=== PATIENT | male | born 1940 | race Caucasian/White ===

== ENCOUNTER → 2019-02-06 | Outpatient (CLI) | payer MEDICARE, OTHER ==
--- NOTE | 2019-02-06 15:51 | US ---
EXAM DESCRIPTION: Venous,Lower Extremity RT (accession [id number]), Venous,Lower Extremity LT (accession [id number]): Ultrasound. CLINICAL HISTORY: Localized edema LEFT COMPARISON: None Available. TECHNIQUE: Two -dimensional and doppler sonographic evaluation of the deep venous system of the bilateral lower extremities. FINDINGS: Doppler evaluation shows normal color flow and normal phasicity and augmentation of the bilateral common femoral veins, deep femoral veins, femoral veins, popliteal veins, greater saphenous vein junction with the common femoral vein, and peroneal veins, Also posterior tibial veins. These veins showed normal occlusion with transducer pressure. Two-dimensional survey showed no echogenic clot within these veins. IMPRESSION: Duplex ultrasound evaluation of the bilateral lower extremity deep venous systems showing no evidence of thrombosis. Electronically signed by: Mat Tuttle MD 02/06/2019 3:49 PM CDT
--- NOTE | 2019-02-06 15:51 | US ---
EXAM DESCRIPTION: Venous,Lower Extremity RT (accession [id number]), Venous,Lower Extremity LT (accession [id number]): Ultrasound. CLINICAL HISTORY: Localized edema LEFT COMPARISON: None Available. TECHNIQUE: Two -dimensional and doppler sonographic evaluation of the deep venous system of the bilateral lower extremities. FINDINGS: Doppler evaluation shows normal color flow and normal phasicity and augmentation of the bilateral common femoral veins, deep femoral veins, femoral veins, popliteal veins, greater saphenous vein junction with the common femoral vein, and peroneal veins, Also posterior tibial veins. These veins showed normal occlusion with transducer pressure. Two-dimensional survey showed no echogenic clot within these veins. IMPRESSION: Duplex ultrasound evaluation of the bilateral lower extremity deep venous systems showing no evidence of thrombosis. Electronically signed by: Mat Tuttle MD 02/06/2019 3:49 PM CDT
== END ==
LOC: NC 08:45
PROVIDERS: ATTEND Emergency Medicine
DX: R60.0 Localized edema (principal); E11.51 Type 2 diabetes mellitus with diabetic peripheral angiopathy without gangrene; I89.0 Lymphedema, not elsewhere classified; M10.032 Idiopathic gout, left wrist; I12.9 Hypertensive chronic kidney disease with stage 1 through stage 4 chronic kidney disease, or unspecified chronic kidney disease; D50.8 Other iron deficiency anemias; J44.9 Chronic obstructive pulmonary disease, unspecified; N40.0 Benign prostatic hyperplasia without lower urinary tract symptoms; N18.3 Chronic kidney disease, stage 3 (moderate); I50.9 Heart failure, unspecified

== ENCOUNTER 2019-03-25 11:43 | Observation (INO) | payer MEDICARE, OTHER ==
--- NOTE | 2019-03-25 12:39 | ED.PDOC ---
History of Present Illness - General Chief Complaint: Cardiovascular Problem Stated Complaint: swelling in legs Time Seen by Provider: 03/25/19 12:23 Source: patient, RN notes reviewed, Vital Signs reviewed, family Exam Limitations: no limitations - History of Present Illness Initial Comments: presents with family for 6 week h/o edema in bilateral legs. Family states he has a history of this. He is supposed to take Lasix, but he is noncompliant and has not taken it in many weeks. He is supposed to wear compression hose, but again is noncompliant with this as well. Pt denies CP, SOB or any recent injury. Also reports edema to left hand for the past month, he has seen pcp for this and diagnosed with gout. Daughter states he had bilateral lower extremity US done 3 weeks ago here for DVT and were negative. Allergies/Adverse Reactions: Allergies NO KNOWN ALLERGY Allergy (Verified 03/25/19 12:19) Review of Systems - Review of Systems Constitutional: Denies: chills, fever, weakness EENTM: Denies: blurred vision, ear pain, nose congestion, throat pain Respiratory: Denies: cough, orthopnea, short of breath, stridor Cardiology: States: edema. Denies: chest pain, palpitations, syncope Gastrointestinal/Abdominal: Denies: abdominal pain, constipation, diarrhea, nausea Genitourinary: Denies: dysuria, frequency, hematuria Musculoskeletal: Denies: back pain, muscle pain Neurological: Denies: headache, weakness Hematologic/Lymphatic: Denies: easy bleeding, easy bruising All other Systems: Reviewed and Negative Past Medical History (General) - Patient Medical History Hx Stroke: No Hx Asthma: No Hx Cardiac Disorders: No Hx Congestive Heart Failure: No Hx Thyroid Disease: No Hx Diabetes: Yes Hx Gastroesophageal Reflux: No Surgical History: other Family Medical History - Family History Mother Family History: Unknown Physical Exam - Physical Exam General Appearance: Alert, Comfortable, No apparent distress Ears, Nose, Throat: normal pharynx Neck: non-tender, full range of motion, supple Respiratory: chest non-tender, lungs clear, normal breath sounds, no respiratory distress Cardiovascular/Chest: normal peripheral pulses, regular rate, rhythm, no murmur, other - 2+ pitting edema to mid thigh bilaterally. Dorsum of left hand has pitting edema with no erythema or tenderness. 2+ radial pulses Gastrointestinal/Abdominal: non tender, soft, other - nondistended Back Exam: normal inspection, no CVA tenderness, no vertebral tenderness Extremity: normal range of motion, pedal edema, swelling Neurologic: no motor/sensory deficits, alert, normal mood/affect, oriented x 3 Skin Exam: normal color, warm/dry Progress - Progress Progress: 03/25/19 14:25 D/W Asa May, hospitalist. Will admit. Pt has h/o HTN, CHF. Presents with worsening BLE edema for 2 months and noncompliant with diuretic. Now having SOB with lying flat. No sign of cellulitis. Had BLE US last month that were negative. CXR shows fluid overload. Troponin and creatinine normal. Will admit for further treatment. - Results/Orders Results/Orders: 03/25/19 12:34 Venous,Upper Extremity LT [US] Stat Laboratory Results - last 24 hr 03/25/19 03/25/19 03/25/19 12:47 12:47 12:47 WBC 6.3 RBC 4.48 L Hgb 13.3 L Hct 39.5 L MCV 88.0 MCH 29.6 MCHC 33.6 RDW 14.2 Plt Count 270 MPV 8.2 Absolute Neuts (auto) 4.50 Absolute Lymphs (auto) 0.80 L Absolute Monos (auto) 0.90 H Absolute Eos (auto) 0.10 Absolute Basos (auto) 0.10 Neutrophils % 70.3 Lymphocytes % 12.8 L Monocytes % 13.9 H Eosinophils % 2.2 Basophils % 0.8 Sodium 140 Potassium 3.9 Chloride 106 Carbon Dioxide 24 Anion Gap 13.9 BUN 29 H Creatinine 1.22 BUN/Creatinine Ratio 23.8 H Random Glucose 114 H Serum Osmolality 286.1 Calcium 9.2 Total Bilirubin 1.1 H AST 17 ALT 11 Alkaline Phosphatase 57 Troponin I < 0.02 B-Natriuretic Peptide 14.8 Serum Total Protein 6.9 Albumin 3.8 Globulin 3.1 Albumin/Globulin Ratio 1.2 Urine Color Urine Appearance Urine pH Ur Specific Garrison Urine Protein Urine Glucose (UA) Urine Ketones Urine Blood Urine Nitrite Urine Bilirubin Urine Urobilinogen Ur Leukocyte Esterase Urine RBC Urine WBC Ur Epithelial Cells Urine Bacteria 03/25/19 13:00 WBC RBC Hgb Hct MCV MCH MCHC RDW Plt Count MPV Absolute Neuts (auto) Absolute Lymphs (auto) Absolute Monos (auto) Absolute Eos (auto) Absolute Basos (auto) Neutrophils % Lymphocytes % Monocytes % Eosinophils % Basophils % Sodium Potassium Chloride Carbon Dioxide Anion Gap BUN Creatinine BUN/Creatinine Ratio Random Glucose Serum Osmolality Calcium Total Bilirubin AST ALT Alkaline Phosphatase Troponin I B-Natriuretic Peptide Serum Total Protein Albumin Globulin Albumin/Globulin Ratio Urine Color Yellow Urine Appearance Clear Urine pH 5.5 Ur Specific Garrison 1.025 Urine Protein Negative Urine Glucose (UA) Negative Urine Ketones Negative Urine Blood Negative Urine Nitrite Negative Urine Bilirubin Negative Urine Urobilinogen 0.2 Ur Leukocyte Esterase Negative Urine RBC 0 Urine WBC 0 Ur Epithelial Cells 0 Urine Bacteria 0 PROVIDED CLINICAL HISTORY/REASON FOR EXAM: edema Comparison: Most recent prior available Findings: Number of images: 1 Location: Frontal Chest Cardiomegaly. Pulmonary vascular congestion. Trace bilateral pleural effusions. Increased bilateral interstitial and airspace opacities. No pneumothorax. No acute osseous abnormality. Soft tissues are unremarkable. No focal consolidation. IMPRESSION: CHF/Volume overload with trace bilateral pleural effusions. Departure - Departure Clinical Impression: Volume overload, Peripheral edema Pulmonary edema Qualifiers: Chronicity: acute Qualified Code(s): J81.0 - Acute pulmonary edema Time of Disposition: 14:29 Disposition: Admit Patient Condition: Fair Departure Forms: ED Discharge - Pt. Copy, Patient Portal Self Enrollment Instructions: DI for Chest Pain Decision To Admit - Decistion To Admit Decision to Admit Reason: Admit from ER Decision to Admit Date: 03/25/19 Decision to Admit Time: 14:28
--- NOTE | 2019-03-25 12:50 | RAD ---
PROVIDED CLINICAL HISTORY/REASON FOR EXAM: edema Comparison: Most recent prior available Findings: Number of images: 1 Location: Frontal Chest Cardiomegaly. Pulmonary vascular congestion. Trace bilateral pleural effusions. Increased bilateral interstitial and airspace opacities. No pneumothorax. No acute osseous abnormality. Soft tissues are unremarkable. No focal consolidation. IMPRESSION: CHF/Volume overload with trace bilateral pleural effusions. Electronically signed by: Sloan Quintanilla MD 03/25/2019 12:48 PM CDT
[2019-03-25] MEDS ORDERED: FUROSEMIDE INJ 40 MG/4 ML VIAL IV ONE (13:01)
--- NOTE | 2019-03-25 15:45 | HP ---
SUPERVISING PHYSICIAN: Tone Banks M.D. CHIEF COMPLAINT: Bilateral lower extremity edema. HISTORY OF PRESENT ILLNESS: Mr. Castro is a 79 year male patient that presented to the [facility] at the request of his family members due to some increasing lower extremity edema over the last several weeks. He sees Dr. Ty Sarabia and has been worked up in the last 3 weeks for possible DVT with ultrasound which was reported negative. He denied any shortness of breath or chest pains but does have a significant amount of edema bilaterally. He is normally on Lasix and Coreg but is not compliant with his medications. He is also supposed to be wearing support hose which he does not do on a regular basis. He denies being diabetic but is a very poor historian. In the [facility] today, his lab work showed he had normal electrolytes with a creatinine of 1.22, glucose 114. Bilirubin was slightly elevated at 1.1. All over liver functions were within normal limits as well as troponin at less than 0.02. BNP was normal at 14. CBC showed normal white count at 6,300 with hemoglobin 13.3, hematocrit 39.5, platelet count 270,000. Differential showed to be without a left shift. Vital signs showed to be normotensive and afebrile. On exam, he does show a significant amount of bilateral lower extremity edema to the pretibial area just below the knee to the entire foot with redness and some serous drainage. No obvious consolidations. He continues denying any chest pain or any other significant symptoms. He does report that he has not been taking his medications as directed. The patient is now going to be admitted to the Medical/Surgical floor for further evaluation and treatment of bilateral lower extremity cellulitis, DVT studies to rule out a lower extremity DVT as well as early concerns for possible congestive heart failure exacerbation, but the patient has no history reportedly of CHF. His chest x-ray, although it was a single view chest, did show CHF/volume overload with trace of bilateral pleural effusions. Echocardiogram was done in the [facility] that was pending at time of admission. The patient is now going to be admitted for bilateral lower extremity edema and treatment of underlying cellulitis with concerns for possible complications from CHF versus just poor medical compliance with treatment regimen. PAST MEDICAL HISTORY: 1. Hypertension. 2. Gout. PAST SURGICAL HISTORY: 1. Bilateral foot surgery for reportedly having diabetic ulcers. HOME MEDICATIONS: 1. Coreg 6.25 mg b.i.d. 2. Flomax 0.4 mg daily. 3. Lasix 40 mg daily. ALLERGIES: NO KNOWN DRUG ALLERGIES. FAMILY HISTORY: Noncontributory. SOCIAL HISTORY: The patient lives in [place] with his . He was a previous tobacco smoker but quit in 1995. He is retired from the [employer]. REVIEW OF SYSTEMS: CONSTITUTIONAL: Negative for any fevers, chills or weakness. HEENT: Negative for sore throats, earaches, nasal congestion, vision changes, headaches. RESPIRATORY: Negative for cough, orthopnea, shortness of breath, stridor. CARDIOVASCULAR: Positive for lower extremity edema, but negative for chest pain, palpitations or syncopal episodes. GASTROINTESTINAL: Negative for nausea, vomiting, diarrhea, constipation or abdominal pain. GENITOURINARY: Negative for dysuria, hematuria, polyuria. MUSCULOSKELETAL: Negative for back pain, muscle pain. NEUROLOGIC: Negative for headaches, vision changes, syncopal episodes, ataxia, seizures, paresthesias. HEMATOLOGIC: Negative for easy bleeding, bruising or transfusion reactions. INTEGUMENTARY: As noted in history of present illness, erythema, swelling of the lower extremities bilaterally with leaking of fluid. PHYSICAL EXAMINATION: VITAL SIGNS: He is afebrile with temperature 98, pulse 86, blood pressure 172/76, respirations 18, satting 98% on room air. GENERAL: The patient is morbidly obese, unkempt with a body odor. He appears to be comfortable in no acute distress. HEENT: Tympanic membranes are clear bilaterally. Oropharynx is pink and moist without any lesions. There is noted what looks to be either a skin cancer versus melanoma to the bridge of the nose which he has refused to have examined and treated for in the past. CHEST: Lung sounds are clear to auscultation, just diminished towards the bases. No obvious rhonchi, wheezing or rales is noted. CARDIOVASCULAR: Regular rate and rhythm without appreciable murmurs, gallops, or rubs. ABDOMEN: Distended but obese, soft, non-tender. Positive bowel sounds. BACK: Without any vertebral or CVA tenderness. EXTREMITIES: Noted 3+ bilateral lower extremity edema with evidence of chronic stasis ulcers to both lower extremities. No obvious areas of consolidation or wounds. His edema does extend just below the knee but does have a trace of edema to the upper. Pulses were weak but palpable bilaterally. NEUROLOGIC: He was alert and oriented times three. Facial features were symmetrical. Extraocular movements are intact. were within normal limits. There is no notable nystagmus. SKIN: Warm, pink and dry except for the noted lesion on the bridge of the nose. LABORATORY: White count showing to be normal at 6,300, hemoglobin 13.3, hematocrit 39.5, platelet count 270,000. Differential shows to be without a left shift. Chemistries show normal electrolytes with BUN 29, creatinine 1.22, glucose 114. Bilirubin 1.1. The rest of AST, ALT and alkaline phosphatase were within normal limits. BNP was 14, troponin less than 0.02. Urinalysis showed to be within normal limits. MICROBIOLOGY: No microbiology specimens were submitted prior to administration of antibiotics. RADIOLOGY: He had a chest x-ray and per radiology interpretation did show congestive heart failure volume overload with trace bilateral pleural effusions. ASSESSMENT: 1. Bilateral lower extremity edema, uncertain etiology, but showing to have a significant amount of cellulitis bilaterally. 2. Questionable congestive heart failure. Echocardiogram pending but the patient having a normal BNP on admission. 3. Chronic lower extremity edema with stasis ulcers contributing to #1 requiring initiation of parenteral antibiotics. 4. Poor medical compliance. PLAN: Mr. Castro is going to be admitted for initiation of antibiotic therapy for bilateral lower extremity edema and cellulitis. I will give him a dose of vancomycin 750 mg tonight. Will follow it up with vancomycin per Pharmacy protocol in the morning. I have also ordered ultrasound of the lower extremities as it has been 3 weeks since he had his last studies. He is on Lovenox until that point. I have also ordered a TSH and hemoglobin A1c as there is very little known about his past medical history. I have given him some Nystatin for the yeast infection to the panniculus. Will repeat labs in the morning. Until we can transition to outpatient management will continue antibiotic therapy with Rocephin and vancomycin. Until then will continue to monitor and treat as needed. #[id number] [facility]
--- NOTE | 2019-03-25 16:15 | US ---
EXAM DESCRIPTION: Venous,Upper Extremity LT: ULTRASOUND. CLINICAL HISTORY: r/o DVT COMPARISON: None Available. TECHNIQUE: Two -dimensional and doppler sonographic evaluation of the deep venous system of the left upper extremity. FINDINGS: Doppler evaluation shows normal color flow and normal phasicity and augmentation of the left subclavian, jugular, axillary, basilic, brachial, radial vein and ulnar vein. Left cephalic vein was not visualized. The left upper extremity deep veins showed normal occlusion with transducer pressure. Two-dimensional survey showed no echogenic thrombus within these veins. IMPRESSION: Duplex ultrasound evaluation of the left upper extremity deep venous system showing no thrombosis . Electronically signed by: Mat Tuttle MD 03/25/2019 4:14 PM CDT
[2019-03-25] MEDS ORDERED: ACETAMINOPHEN 325 MG TAB PO PRN (17:20)
[2019-03-25] MEDS ORDERED: SODIUM CHLORIDE 0.9% (FLUSH) 10 ML SYG IV PRN (17:20)
[2019-03-25] MEDS ORDERED: MAGNESIUM HYDROXIDE 30 ML UD PO PRN (17:20)
[2019-03-25] MEDS ORDERED: NITROGLYCERIN 0.4 MG 25 EA TAB SL PRN (17:20)
[2019-03-25] MEDS ORDERED: ONDANSETRON INJ 4 MG/2 ML VIAL IV PRN (17:20)
[2019-03-25] MEDS ORDERED: IV SET AND CAP CHANGE INJ INJ SCH (17:30)
[2019-03-25] MEDS ORDERED: VANCOMYCIN HCL INJ 1,750 MG in SODIUM CHLORIDE 0.9% 500ML 500 ML IVPB ONE (17:47)
[2019-03-25] MEDS ORDERED: SODIUM CHLORIDE 0.9% 250ML 250 ML ONE (17:52)
[2019-03-25] MEDS ORDERED: FLUCONAZOLE 150 MG TAB PO ONE (17:53)
[2019-03-25] MEDS ORDERED: VANCOMYCIN HCL INJ 1,000 MG VIAL IVPB ONE ×2 (17:53→18:09)
[2019-03-25] MEDS ORDERED: SODIUM CHLORIDE 0.9% 500ML 500 ML ONE (18:09)
[2019-03-25] MEDS: NITROGLYCERIN 0.4 MG/HR PATCH TOP SCH (18:12)
[2019-03-25] MEDS ORDERED: CARVEDILOL 3.125 MG TAB ONE (19:20)
[2019-03-25] MEDS ORDERED: SODIUM CHL 0.9% 50ML MIN-BAG+ 50 ML IVPB ONE (19:20)
[2019-03-25] MEDS ORDERED: cefTRIAXone SODIUM 1 GM VIAL ONE (19:21)
[2019-03-25] MEDS: ENOXAPARIN SODIUM 40 MG/0.4 ML SYG SUBCU SCH (20:17)
[2019-03-25] MEDS: NYSTATIN POWDER 15GM BTTL TOP SCH (20:17)
[2019-03-25] MEDS: cefTRIAXone SODIUM 1 GM in SODIUM CHL 0.9% 50ML MIN-BAG+ 50 ML IVPB SCH (20:53)
[2019-03-25] MEDS ORDERED: NON-FORMULARY MEDICATION 1 EA MIS (Carvedilol [Coreg] 6.25 MG) PO SCH (21:00)
[2019-03-26] MEDS ORDERED: VANCOMYCIN PER PHARMACY IVPB SCH (08:00)
[2019-03-26] MEDS: BIFIDOBACTERIUM INFANTIS 4 MG CAP PO SCH (10:20)
[2019-03-26] MEDS: CARVEDILOL 3.125 MG TAB PO SCH ×2 (10:20→20:34)
[2019-03-26] MEDS: NITROGLYCERIN 0.4 MG/HR PATCH TOP SCH (10:21)
[2019-03-26] MEDS: LISINOPRIL 10 MG TAB PO SCH (10:21)
[2019-03-26] MEDS: TAMSULOSIN 0.4 MG CAP PO SCH (10:21)
[2019-03-26] MEDS: FUROSEMIDE INJ 40 MG/4 ML VIAL IV SCH ×2 (10:21→19:25)
[2019-03-26] MEDS: ASPIRIN (CHEWABLE) 81 MG TAB PO SCH (10:21)
[2019-03-26] MEDS: NYSTATIN POWDER 15GM BTTL TOP SCH ×4 (10:26→20:34)
--- NOTE | 2019-03-26 10:51 | US ---
EXAM DESCRIPTION: Venous,Lower Extremity LT (accession [id number]), Venous,Lower Extremity RT (accession [id number]): Ultrasound. CLINICAL HISTORY: Bilateral LE edema cellulitis COMPARISON: None Available. TECHNIQUE: Two -dimensional and doppler sonographic evaluation of the deep venous system of the bilateral lower extremities. FINDINGS: Doppler evaluation shows normal color flow and normal phasicity and augmentation of the bilateral common femoral veins, junctions with the bilateral proximal saphenous veins, femoral veins, popliteal veins, peroneal and posterior tibial veins. These veins showed normal occlusion with transducer pressure. Two-dimensional survey showed no echogenic clot within these veins. Bilateral edema in the subcutaneous tissues which could represent cellulitis. No fluid collection. IMPRESSION: Duplex ultrasound evaluation of the bilateral lower extremity deep venous systems showing no evidence of thrombosis. Bilateral edema/cellulitis . No fluid collection. Electronically signed by: Mat Tuttle MD 03/26/2019 10:50 AM CDT
--- NOTE | 2019-03-26 10:51 | US ---
EXAM DESCRIPTION: Venous,Lower Extremity LT (accession [id number]), Venous,Lower Extremity RT (accession [id number]): Ultrasound. CLINICAL HISTORY: Bilateral LE edema cellulitis COMPARISON: None Available. TECHNIQUE: Two -dimensional and doppler sonographic evaluation of the deep venous system of the bilateral lower extremities. FINDINGS: Doppler evaluation shows normal color flow and normal phasicity and augmentation of the bilateral common femoral veins, junctions with the bilateral proximal saphenous veins, femoral veins, popliteal veins, peroneal and posterior tibial veins. These veins showed normal occlusion with transducer pressure. Two-dimensional survey showed no echogenic clot within these veins. Bilateral edema in the subcutaneous tissues which could represent cellulitis. No fluid collection. IMPRESSION: Duplex ultrasound evaluation of the bilateral lower extremity deep venous systems showing no evidence of thrombosis. Bilateral edema/cellulitis . No fluid collection. Electronically signed by: Mat Tuttle MD 03/26/2019 10:50 AM CDT
--- NOTE | 2019-03-26 11:46 | PN ---
SUPERVISING PHYSICIAN: Shari Banks MD DATE: 03/26/19 SUBJECTIVE: The patient states his legs are not quite as tight feeling. He is not having any shortness of breath. He has had no chest pains, no further complaints. OBJECTIVE: VITAL SIGNS: Temperature 98.2. Pulse 92. Blood pressure 142/56. Respirations 20. Oxygen saturation 95% on room air. I&Os show positive balance of 100 with weight 121.6 kg. This is down from 124.5 kg on admission. GENERAL: The patient is resting comfortably, in no acute distress. CHEST: Lungs clear to auscultation, just diminished towards the bases. HEART: Regular rate and rhythm. ABDOMEN: Obese, but soft and nontender. Positive bowel sounds. EXTREMITIES: Bilateral lower extremities continue to show 2+ edema with erythema extending from the knees down to just distal to the ankle with continued serous drainage with some slight improvement since admission. Erythematous in appearance with some mild tenderness on palpation bilaterally. Distally, pulses are 1+. Capillary refill brisk. NEUROLOGIC: Alert and oriented times three. LABORATORY: No additional laboratories were repeated today as labs were within normal limits on admission. Hemoglobin A1c was normal at 5.2. TSH was 0.73. C-reactive protein was 0.9 with ESR elevated at 25. RADIOLOGY: Bilateral lower extremity Doppler studies were negative for DVT. ASSESSMENT: 1. Bilateral lower extremity edema, uncertain etiology, but showing to have a significant amount of cellulitis bilaterally with the patient showing response to parenteral antibiotic including vancomycin and Rocephin. 2. Chronic lower extremity edema with stasis ulcers contributing to #1 requiring initiation of parenteral antibiotics. 3. Poor medical compliance with history of hypertension and diabetes, but normal hemoglobin A1c on admission. PLAN: Mr. Castro will be continued on antibiotic therapy today and Lasix as initial plan of care with Rocephin and vancomycin. He does remain on Lasix 40 mg b.i.d. He is on Lovenox for DVT prophylaxis. I anticipate at least another 48 hours of admission. We will need to get a physical therapy consult with anticipation of being able to discharge hopefully by either later Saturday or Saturday if he can transition to outpatient antibiotic therapy. Until then, we will continue to monitor and treat as needed. [id number]
[2019-03-26] MEDS ORDERED: VANCOMYCIN HCL INJ 2,000 MG in SODIUM CHLORIDE 0.9% 500ML 500 ML IVPB SCH (13:00)
[2019-03-26] MEDS ORDERED: VANCOMYCIN HCL INJ 1,000 MG VIAL IVPB ONE (14:05)
[2019-03-26] MEDS ORDERED: SODIUM CHLORIDE 0.9% 500ML 500 ML ONE (14:05)
[2019-03-26] MEDS: cefTRIAXone SODIUM 1 GM in SODIUM CHL 0.9% 50ML MIN-BAG+ 50 ML IVPB SCH (19:25)
[2019-03-26] MEDS ORDERED: SODIUM CHL 0.9% 50ML MIN-BAG+ 50 ML IVPB ONE (19:28)
[2019-03-26] MEDS ORDERED: cefTRIAXone SODIUM 1 GM VIAL ONE (19:28)
[2019-03-26] MEDS: ENOXAPARIN SODIUM 40 MG/0.4 ML SYG SUBCU SCH (20:34)
[2019-03-27] MEDS: NYSTATIN POWDER 15GM BTTL TOP SCH (08:37)
[2019-03-27] MEDS: NITROGLYCERIN 0.4 MG/HR PATCH TOP SCH (08:37)
[2019-03-27] MEDS: LISINOPRIL 10 MG TAB PO SCH (08:37)
[2019-03-27] MEDS: CARVEDILOL 3.125 MG TAB PO SCH (08:37)
[2019-03-27] MEDS: FUROSEMIDE INJ 40 MG/4 ML VIAL IV SCH (08:37)
[2019-03-27] MEDS: BIFIDOBACTERIUM INFANTIS 4 MG CAP PO SCH (08:37)
[2019-03-27] MEDS: TAMSULOSIN 0.4 MG CAP PO SCH (08:37)
[2019-03-27] MEDS: ASPIRIN (CHEWABLE) 81 MG TAB PO SCH (08:37)
[2019-03-27] MEDS ORDERED: FUROSEMIDE 40 MG TAB PO SCH (09:00)
[2019-03-27] MEDS ORDERED: DOXYCYCLINE HYCLATE CAP 100 MG CAP PO SCH (09:00)
[2019-03-27 10:13] VITALS: BP 148/70; TEMP 97.9; O2SAT 96
--- NOTE | 2019-03-27 10:29 | DS ---
SUPERVISING PHYSICIAN: Shari Banks MD DISCHARGE DIAGNOSIS: 1. Bilateral lower extremity edema, uncertain etiology, but showing to have a significant amount of cellulitis bilaterally with the patient showing response to parenteral antibiotic including vancomycin and Rocephin. 2. Chronic lower extremity edema with stasis ulcers contributing to #1 requiring initiation of parenteral antibiotics. 3. Poor medical compliance with history of hypertension and diabetes, but normal hemoglobin A1c on admission. HISTORY OF PRESENT ILLNESS: This is a 79-year-old male patient who presented to the Emergency Room at the request of his family members due to some increasing lower extremity edema that he had had for several weeks. He had seen Dr. Ty Sarabia in the past as well as Dr. Buzz Barajas when he was at [facility]. He is a poor historian. Initially, the thought he had a DVT, but ultrasound was reported negative. He denied any shortness of breath or chest pain. He does have quite a bit of edema. He is normally on Lasix and Coreg, but is poorly compliant with his medications. He is supposed to be wearing support hose, but does not on a regular basis. His his lab work in the Emergency Room showed he had normal electrolytes with a creatinine of 1.22, glucose 114. Bilirubin was elevated at 1.1. Liver functions were within normal limits and troponin was less than 0.02. BNP was normal at 14. CBC showed normal white count at 6,300 with hemoglobin 13.3, hematocrit 39.5, platelet count 270,000. Differential was without a left shift. Vital signs were stable. He had quite a bit of bilateral lower extremity edema with some serous drainage. There were no obvious consolidations or fluctuations. He denied chest pain or any other significant symptoms. He did say he has not been taking his medications as directed and according to his family, he is poorly compliant. Chest x-ray did show congestive heart failure/volume overload with a trace of bilateral pleural effusions. Echocardiogram was done. The patient was admitted for possible congestive heart failure versus poor medical compliance. HOSPITAL COURSE: He was given antibiotics for his lower extremity cellulitis with vancomycin. He was also given IV Lasix. He was given Lovenox for DVT prophylaxis. He did have a mild yeast infection to the panniculus and was given some Nystatin. He was also started on Rocephin. He had an echocardiogram done. Lower extremity ultrasounds were done. His lab work as been stable. His vital signs have been stable. He will be discharged home today with close followup with Dr. Buzz Barajas. LABORATORY: As per the history of present illness. He did have an elevated ESR at 25. Hemoglobin A1c was 5.2. His metabolic panels per the EMR. C-reactive protein was 0.9. TSH 0.73. MICROBIOLOGY: There was no microbiology done. RADIOLOGY: His upper extremity ultrasound shows no thrombus in the left upper extremity. His lower extremity ultrasounds were negative for any lower extremity DVT. Chest x-ray is as per history of present illness. His echocardiogram showed 1) Normal left ventricular size and systolic function with an estimated ejection fraction of 55% to 60%. There were no obvious regional wall motion abnormalities. 1) Normal right ventricular size and function. 3) Trace mitral and tricuspid valve regurgitation. 4) Small posterior pericardial effusion. DISCHARGE PLAN: The patient will be discharged home in stable condition. Bilingual Trainer did talk to him about his compliance and offered home health. He refused. I discussed with him at length that he needed to be compliant with his medications as well as close followup with his physician for preventative health measures. He said all of his medications were okay at home except for his Lasix, which I have given him a prescription for as well as some cefdinir, doxycycline, Nystatin powder and potassium chloride. He will be discharged home in stable condition. He is to return to the hospital or followup with Dr. Barajas for any problems or complications. DISCHARGE MEDICATIONS: 1. Tamsulosin. 2. Furosemide. 3. Carvedilol. 4. Aspirin. 5. Align. 6. Cefdinir. 7. Doxycycline. 8. Nystatin. 9. Potassium chloride. #[id number] [facility]
== END 2019-03-27 10:55 | disposition home or self-care (01) ==
LOC: ER 11:43 → MS 15:43 → INTOOBSV 15:43 → OBSVTOIN 15:43
PROVIDERS: ADMIT Nurse Practitioner Family; ATTEND Nurse Practitioner Acute Care
DX: L03.116 Cellulitis of left lower limb (principal); L03.115 Cellulitis of right lower limb; R60.0 Localized edema; I83.018 Varicose veins of right lower extremity with ulcer other part of lower leg; I83.028 Varicose veins of left lower extremity with ulcer other part of lower leg; L97.819 Non-pressure chronic ulcer of other part of right lower leg with unspecified severity; L97.829 Non-pressure chronic ulcer of other part of left lower leg with unspecified severity; I11.0 Hypertensive heart disease with heart failure; I50.9 Heart failure, unspecified; E11.9 Type 2 diabetes mellitus without complications; B37.2 Candidiasis of skin and nail; I34.0 Nonrheumatic mitral (valve) insufficiency; I36.1 Nonrheumatic tricuspid (valve) insufficiency; I31.3 Pericardial effusion (noninflammatory); M10.9 Gout, unspecified; Z91.14 Patient's other noncompliance with medication regimen; Z91.19 Patient's noncompliance with other medical treatment and regimen; Z79.82 Long term (current) use of aspirin; Z79.899 Other long term (current) drug therapy; Z87.891 Personal history of nicotine dependence
CPT/HCPCS: 96365; 96375; 96376 ×2; 96372 ×2; J0696 ×2; J1940 ×4; J7040 ×2; J7050 ×3; J3370 ×2; J1650 ×2; 80053; 83036; 36415; 81001; 86140; 85025; 85651; 84443; 84484; 83880; 71045; 93971 ×3; 94760 ×7; 99285; 93306